=== PATIENT | female | born 1980 | race Native Hawaiian/Other Pacific Islander ===

== ENCOUNTER → 2018-04-25 | Outpatient (CLI) | payer OTHER | LOC: EDBD 08:55 → MC.RAD 08:55 | DX: Z12.31 Encounter for screening mammogram for malignant neoplasm of breast (principal) ==

== ENCOUNTER → 2019-10-16 | Outpatient (CLI) | payer SELFPAY | LOC: MC.RAD 07-04 16:15 | DX: Z12.31 Encounter for screening mammogram for malignant neoplasm of breast (principal) ==

== ENCOUNTER → 2019-10-19 | Outpatient (CLI) | payer SELFPAY | LOC: MC.RAD 10:21 | DX: N64.89 Other specified disorders of breast (principal) | CPT/HCPCS: G0279 ==